=== PATIENT | female | born 1980 | race Caucasian/White ===

== ENCOUNTER 2020-08-24 10:33 | Outpatient (CLI) | payer BC ==
[2020-08-24 12:16] LABS: #Eosinphils 0.2 10x3/uL (0.0-0.5); #Monocytes 0.4 10x3/uL (0.0-1.1); %Basophils 0.3 % (0.0-2.0); %Eosinophils 2.9 % (0.0-6.0); %Lymphocytes 38.8 % (18.0-47.0); %Monocytes 6.5 % (0.0-10.0); %Neutrophils 51.2 % (40.0-75.0); Hemoglobin 13.3 g/dL (12.0-15.5); Mean Corpuscular HGB CONC 33.6 g/dL (32.0-36.0); Mean Corpuscular Hemoglobin 30.6 pg (27.0-33.0); Mean Platelet Volume 10.4 fl (7.4-10.4); Platelet Count 212 10x3/uL (150-450); RBC Distribution Width 12.1 % (11.5-14.5); Red Blood Cell (RBC) Count 4.35 10x6/uL (3.90-5.03); White Blood Cell (WBC) Count 5.9 10x3/uL (3.5-10.5)
[2020-08-24 12:28] LABS: BHCG - Serum Negative (NEGATIVE); Pregs Control Background? CLEAR/WHITE (CLR/WHITE); Pregs Control Bar Appear? YES (CONTROL BAR)
[2020-08-24 18:21] LABS: SARS-CoV-2 PCR by NAA Not Detected (NotDetected)
== END 2020-08-24 10:34 | disposition home or self-care (01) ==
LOC: CSHLAB 10:33
PROVIDERS: ATTEND Otolaryngology Plastic Surgery within the Head & Neck
DX: Z01.812 Encounter for preprocedural laboratory examination (principal); Z20.822 Contact with and (suspected) exposure to COVID-19; D49.7 Neoplasm of unspecified behavior of endocrine glands and other parts of nervous system
CPT/HCPCS: 84703; 85025; 87635; U0003; U0005

== ENCOUNTER 2020-08-29 08:15 | Observation (INO) | payer BC ==
[2020-08-26 11:57] VITALS: BMI 37.2
[2020-08-29] MEDS ORDERED: Acetaminophen 325 MG TAB PO PRN (08:59)
[2020-08-29] MEDS ORDERED: HYDROcodone/Acetaminophen 7.5/325 mg Tablet PO PRN (08:59)
[2020-08-29] MEDS ORDERED: Ondansetron PF 4 MG/2 ML Vial IVP PRN (08:59)
[2020-08-29] MEDS ORDERED: Lidocaine 1% MPF 2 ML VIAL ONE (09:56)
[2020-08-29] MEDS ORDERED: Lidocaine 1% w/Epinephrine 1:100K 20 ML VIAL ONE (11:11)
[2020-08-29] MEDS ORDERED: CEFAZOLIN 1 GM VIAL ONE (11:21)
[2020-08-29] MEDS ORDERED: Midazolam HCl 2 mg/2 ml Vial ONE ×2 (11:25→11:35)
[2020-08-29] MEDS ORDERED: Fentanyl 100 MCG/2 ML VIAL ONE (11:35)
[2020-08-29] MEDS ORDERED: PROPOFOL 20 ML ONE (11:35)
[2020-08-29] MEDS ORDERED: Ondansetron PF 4 MG/2 ML Vial ONE (11:36)
[2020-08-29] MEDS ORDERED: Lidocaine 1% PF 5 ML VIAL ONE (11:36)
[2020-08-29] MEDS ORDERED: Rocuronium Bromide 10 MG/ML (10ML VIAL) ONE (11:36)
[2020-08-29] MEDS ORDERED: Ketorolac Tromethamine 15 MG/ML VIAL ONE (11:36)
[2020-08-29] MEDS ORDERED: Dexamethasone 4 mg/ml Vial ONE ×2 (11:36→13:18)
[2020-08-29] MEDS ORDERED: Glycopyrrolate 0.2 MG/ML 5 ML SYRINGE ONE (11:36)
[2020-08-29] MEDS ORDERED: Succinylcholine 200 MG/10 ml SYRINGE FS ONE (11:51)
[2020-08-29] MEDS ORDERED: HYDROmorphone 0.5 MG/0.5 ML SYRINGE ONE (11:53)
[2020-08-29] MEDS ORDERED: Morphine 1 ML ONE (12:02)
[2020-08-29] MEDS ORDERED: Morphine 4 MG/ML VIAL ONE (13:37)
[2020-08-29 16:23] VITALS: TEMP 97.2
[2020-08-29] MEDS: HYDROcodone/Acetaminophen 5/325 mg Tablet PO PRN ×2 (16:25→20:09)
[2020-08-29] MEDS: Calcium Carbonate 600 MG TAB PO SCH ×2 (16:26→20:09)
[2020-08-29] MEDS: Calcitriol 0.25 MCG CAP PO SCH (20:09)
[2020-08-30] MEDS: HYDROcodone/Acetaminophen 5/325 mg Tablet PO PRN ×2 (02:19→08:05)
[2020-08-30] MEDS: Calcium Carbonate 600 MG TAB PO SCH (08:05)
[2020-08-30] MEDS: Calcitriol 0.25 MCG CAP PO SCH (08:05)
[2020-08-30 08:59] VITALS: BP 123/76
[2020-08-30] MEDS ORDERED: NORGESTREL ETHINYL ESTRADIOL PO SCH (09:00)
[2020-08-30] MEDS ORDERED: Thyroid 30 MG TAB PO SCH (09:00)
[2020-08-30] MEDS ORDERED: Thyroid 60 MG TAB PO SCH (09:00)
[2020-08-30] MEDS ORDERED: Montelukast Sodium 10 mg Tablet PO SCH (21:00)
== END 2020-08-30 11:26 | disposition home or self-care (01) ==
LOC: CSHSDC 08:15 → CSHTELE 13:56
PROVIDERS: ADMIT Otolaryngology Plastic Surgery within the Head & Neck; ATTEND Otolaryngology Plastic Surgery within the Head & Neck
PROC: 0GTK0ZZ Resection of Thyroid Gland, Open Approach (ICD-10-PCS; principal; 2020-08-29)
DX: C73 Malignant neoplasm of thyroid gland (principal); E06.3 Autoimmune thyroiditis
CPT/HCPCS: 83970; 88307; G0378; J0690; J1100; J1170; J1885; J2250; J2270; J2405; J2704; J3010